=== PATIENT | female | born 2000 ===

== ENCOUNTER → 2019-12-25 | Outpatient (CLI) | payer OTHER | END | disposition home or self-care (01) | LOC: PRENATAL 10:00 | PROVIDERS: ATTEND Obstetrics & Gynecology | DX: O35.0XX1 Maternal care for (suspected) central nervous system malformation in fetus, fetus 1 (principal); O35.3XX1 Maternal care for (suspected) damage to fetus from viral disease in mother, fetus 1 ==

== ENCOUNTER 2020-03-13 07:53 | Outpatient (CLI) | payer OTHER ==
[2020-03-13] MEDS ORDERED: PRENATAL TABLE1 EAC1 PO (08:29)
[2020-03-13] MEDS ORDERED: FOLIC ACID20 MG PO (08:29)
== END 2020-03-14 12:55 | disposition home or self-care (01) ==
LOC: OBS/DEL 07:53
PROVIDERS: ATTEND Obstetrics & Gynecology
DX: O36.8130 Decreased fetal movements, third trimester, not applicable or unspecified (principal); O23.43 Unspecified infection of urinary tract in pregnancy, third trimester

== ENCOUNTER 2020-04-05 17:20 | Emergency (ER) | payer OTHER ==
[~2020-04-05] VITALS: Ht 165.1 cm; Wt 81.6 kg
[~2020-04-05 17:20] MED LIST: FOLIC ACID20 MG PO; PRENATAL TABLE1 EAC1 PO
== END 2020-04-05 19:12 | disposition home or self-care (01) ==
LOC: ER 17:20
DX: O26.893 Other specified pregnancy related conditions, third trimester (principal); M79.674 Pain in right toe(s); L98.8 Other specified disorders of the skin and subcutaneous tissue; Z3A.36 36 weeks gestation of pregnancy

== ENCOUNTER 2020-04-24 03:18 | Inpatient (IN) | payer OTHER ==
[~2020-04-24] VITALS: Ht 162.6 cm; Wt 83.5 kg
== END 2020-04-26 12:17 | disposition home or self-care (01) | DRG 807 ==
LOC: LDR 03:18 → OB/GYN 03:18
PROVIDERS: ADMIT Obstetrics & Gynecology; ATTEND Obstetrics & Gynecology
PROC: 10E0XZZ Delivery of Products of Conception, External Approach (ICD-10-PCS; principal; 2020-04-24)
PROC: 3E033VJ Introduction of Other Hormone into Peripheral Vein, Percutaneous Approach (ICD-10-PCS; 2020-04-24)
PROC: 4A1HXFZ Monitoring of Products of Conception, Cardiac Rhythm, External Approach (ICD-10-PCS; 2020-04-24)
DX: O80 Encounter for full-term uncomplicated delivery (principal); Z37.0 Single live birth; Z20.828 Contact with and (suspected) exposure to other viral communicable diseases; Z3A.39 39 weeks gestation of pregnancy